=== PATIENT | male | born 1990 | race Two or more races ===

== ENCOUNTER 2017-01-19 15:13 | Inpatient (IN) | payer OTHER ==
[~2017-01-19] VITALS: Ht 167.6 cm; Wt 44.2 kg
--- NOTE | ~2017-01-19 | CR72 ---
[facility] A Service of [facility] & [facility] RADIOLOGY TEXT RESULTS PATIENT: SOLEDAD CHAND LOCATION: [facility] 320-01 : [birth year] UNIT #: [id number] AGE: [address]: Amina Fields MD SEX: M ORDER DR: [id number] [facility] [address] [facility]. [place], [place] [address] [id number] I MR#: [id number] Acc #: [id number] NAME: SOLEDAD CHAND : 1990 SEX: M STUDY DATE/TIME: 01/19/2017 16:29 UNIT: [address] ROOM: [facility] STUDY DESCRIPTION: CR Chest Single View Portable Attending Physician: Amina Fields M.D. Referring Physician: No Primary Care Physician Ordering Physician: Qamar Louie D.O. Primary Care Physician: No Primary Care Physician MEDICAL IMAGING REPORT This report is preliminary unless electronic signature is present EXAM Portable chest HISTORY Palpitations for 3 days. FINDINGS A single AP portable view of the chest shows both lungs to be clear. The heart is normal in size. The mediastinal contour is normal. No significant bone abnormalities are seen. IMPRESSION Normal portable chest. Dictated by... Александр Mcgovern M.D. THIS IS AN ELECTRONICALLY VERIFIED REPORT Александр Mcgovern M.D. at 01/20/2017 1:03 PM LOREE/andi TD: 01/20/2017 00:09 JOB #: [id number] MEDICAL IMAGING REPORT Page 1 of 1 COPY
--- NOTE | ~2017-01-19 | OR ---
Unit #: [id number] #: [id number] Patient: SOLEDAD CHAND [id number] [address] [address] [id number] I MR#: [id number] NAME: SOLEDAD CHAND ROOM: 320 Date of Procedure: 01/20/2017 Admission Date: 01/19/2017 Surgeon: Steven Nugent M.D. : 1990 Attending Physician: Afshin Norton M.D. Referring Physician: Primary Care Physician No Primary Care Physician: Primary Care Physician No OPERATIVE REPORT PROCEDURE PERFORMED Esophagogastroduodenoscopy with biopsy. INDICATIONS GI bleeding and severe anemia. MEDICATIONS Versed 7 mg and fentanyl 75 mcg IV. POSTOPERATIVE FINDINGS 1. A 1 cm ulcer clean-based duodenal bulb. No active bleeding or stigmata of recent bleeding was seen. 2. Normal stomach, biopsies taken, looking for H pylori. 3. Normal duodenum and distal duodenum. PLAN 1. PPI therapy. 2. Treat for H pylori if positive. 3. Transfusion and supportive care. DESCRIPTION OF PROCEDURE The patient was explained of the procedure risks and benefits along with risks and benefits of anesthesia. He was brought to the endoscopy room. Versed and fentanyl were used for conscious sedation. The scope was then passed down the mouth and esophagus, stomach, duodenum, and distal duodenum findings as described. Biopsies were taken in the stomach. Gently, I pulled it out of the patient's mouth. He tolerated it well. Dictated by... Luis Fernando Sparks/nette TD: 01/20/2017 10:36 JOB #: [id number] CC: Primary Care Physician Unit #: [id number] #: [id number] Patient: SOLEDAD HCAND OPERATIVE REPORT Page 1 of 1 X Steven Nugent MD X PROCEDURE OPERATIVE NOTE
--- NOTE | ~2017-01-19 | EKG ---
PATIENT: SOLEDAD CHAND UNIT #: [id number] Ventricular Rate: 109 BPM Atrial Rate: 109 BPM P-R Interval: 156 ms QRS Duration: 84 ms Q-T Interval: 336 ms QTC Calculation(Bezet): 452 ms P Brandon: 75 degrees Calculated R Brandon: 71 degrees Calculated T Brandon: 52 degrees Diagnosis Line: Sinus tachycardia Diagnosis Line: Otherwise normal ECG Diagnosis Line: No previous ECGs available Diagnosis Line: Confirmed by MANUELA SANTO MD ([id number]) on Diagnosis Line: 01/20/2017 11:15:30 PM INTERPRETING MD: HANSA DIEGO
--- NOTE | ~2017-01-19 | HP ---
Unit #: [id number] #: [id number] Patient: SOLEDAD CHAND [id number] [facility] [address] [facility]. [place], [place] [address] [id number] I MR#: [id number] NAME: SOLEDAD CHAND ROOM: 320 Age: 26 Sex: M Admission Date: 01/19/2017 : 1990 Attending Physician: Amina Fields M.D. Primary Care Physician: No Primary Care Physician HISTORY AND PHYSICAL CHIEF COMPLAINT Palpitations. HISTORY OF PRESENT ILLNESS The patient is a 26-year-old Filipino male with no significant past medical history who presented to the emergency department for evaluation of the above. History is obtained via [employer] #[id number] due to the patient being Filipino speaking only. The patient states that he has had a 3-day history of intermittent palpitations. He denies any chest pain. He has had chills but no documented fever. He reports decreased appetite. He denies any vomiting. He has noticed that his stool has been getting darker for the past couple days. He denies any urinary symptoms. He denies any change in his weight. He has never had endoscopy. In the emergency department initial pulse and blood pressure were 130 and 145/80 respectively. He was given 500 mL of normal saline, as well as 80 mg of Protonix. Rectal exam was heme positive per ER documentation. Hemoglobin is 8.1. He is being admitted to [facility] for evaluation and further treatment. PAST MEDICAL HISTORY The patient denies hospitalizations. PAST SURGICAL HISTORY None. SOCIAL HISTORY The patient lives with family. He moved to the [place] 6 months ago. He denies tobacco or alcohol use. FAMILY HISTORY Notable for his parents being healthy. ALLERGIES No known allergies. HOME MEDICATIONS None. REVIEW OF SYSTEMS A complete review of systems is negative except as indicated in the HPI. Unit #: [id number] #: [id number] Patient: SOLEDAD CHAND PHYSICAL EXAMINATION VITAL SIGNS: Temperature is 98, pulse 130, respirations 16, blood pressure 144/80, oxygen saturation 100% on room air. GENERAL: The patient is awake and alert, in no acute distress. HEENT: The head is atraumatic. Mucous membranes are moist. NECK: Supple. Trachea is midline. CARDIOVASCULAR: Tachycardic in the 120s. He does have a 3/6 systolic ejection murmur. RESPIRATORY: Lungs are clear to auscultation bilaterally with no increased work of breathing. ABDOMEN: Soft, nontender with bowel sounds present in all 4 quadrants. RECTAL EXAM: Rectal exam was heme positive per ER documentation. EXTREMITIES: Extremities are nontender with no pedal edema. NEUROLOGIC: The patient is awake and alert. He follows commands. PSYCHIATRIC: Mood and affect are normal. The patient is cooperative. SKIN: Skin of examined areas is warm and dry. DIAGNOSTIC TESTS CARDIOVASCULAR: EKG shows sinus tachycardia with rate of 109 beats per minute. LABORATORY: Complete blood count notable for hemoglobin and hematocrit of 8.1 and 23.7 respectively. Troponin is less than 0.05. INR is 1. Comprehensive metabolic panel notable for glucose of 125, calcium 8.3, total protein 5.8, magnesium 1.9. TSH is 1.65. ASSESSMENT 1. The patient is a 26-year-old male with GI bleed. The patient received 80 mg of Protonix in the emergency department. 2. Normocytic anemia. The patient's hemoglobin is 8.1 with no baseline for comparison. 3. Murmur, possibly secondary to anemia. The patient denies any type of heart history. PLAN 1. Admit for observation to intermediate level. 2. NPO for possible endoscopy. 3. Normal saline at 125 mL an hour following 1 liter normal saline bolus. 4. Hemoglobin and hematocrit q.6 hours. Will plan transfusion for hemoglobin less than 7. 5. Iron studies, B12 and folate. 6. Protonix drip at 8 mg per hour. 7. Consult Dr. Nugent regarding GI bleed. 8. Repeat labs in the morning. 9. SCDs for DVT prophylaxis. 10. Additional workup and consultants based on above. Dictated by Luis Fernando Davey/stephanie TD: 01/20/2017 07:40 JOB #: [id number] Unit #: [id number] #: [id number] Patient: SOLEDAD CHAND HISTORY AND PHYSICAL Page 1 of 1 X Amina Fields MD HISTORY AND PHYSICAL
--- NOTE | ~2017-01-19 | DS ---
Unit #: [id number] #: [id number] Patient: SOLEDAD CHAND [id number] [address] [address] [id number] I MR#: [id number] NAME: SOLEDAD CHAND ROOM: 320 Age: 26 Sex: M Admission Date: 01/19/2017 : 1990 Discharge Date: 01/21/2017 Attending Physician: Afshin Norton M.D. Referring Physician: Primary Care Physician No Primary Care Physician: Primary Care Physician No DISCHARGE SUMMARY DISCHARGE DIAGNOSIS Symptomatic acute blood loss anemia. HOSPITAL COURSE The patient is a 26-year-old male presented to [facility] emergency department with the complaint of palpitations. Initial hemoglobin was noted to be 8.1. Dropped to 6.2 and the patient received four units of packed red blood cells. He was taken for EGD and was noted to have a duodenal ulcer that was not actively bleeding. The patient tolerated the procedure well and after having been started on an IV proton pump inhibitor is being discharged on Protonix 40 mg p.o. b.i.d. He denies further bleeding, nausea, or vomiting. DISCHARGE MEDICATIONS Protonix 40 mg p.o. b.i.d. FOLLOWUP The patient is to follow up with Dr. Nugent in two weeks. Dictated by... Luis Fernando Green/danielle TD: 01/23/2017 10:49 JOB #: [id number] DISCHARGE SUMMARY Page 1 of 1 X Afshin Norton MD X DISCHARGE SUMMARY
--- NOTE | ~2017-01-19 | CO ---
Unit #: [id number] #: [id number] Patient: SOLEDAD RODRIGUEZ [id number] [address] [place], [place] [address] [id number] I MR#: [id number] NAME: SOLEDAD RODRIGUEZ ROOM: 320 Age: 26 Sex: M Admission Date: 01/19/2017 : 1990 Attending Physician: Amina Fields M.D. Primary Care Physician: Primary Care Physician No Consultation Date: 01/20/2017 CONSULTATION REPORT REASON FOR CONSULTATION GI bleeding. HISTORY OF PRESENTING ILLNESS Mr. Rodriguez is a [place] Citizen speaking immigrated 6 months ago, now presents with blood in the stool, and was found to be severely anemic. He initially presented with palpitations. His hemoglobin on arrival was 8.1. He denies any history of GI bleeding or in the evaluation in the past. He denies NSAID use. PAST MEDICAL HISTORY Unremarkable. PAST SURGICAL HISTORY No previous surgeries. SOCIAL HISTORY Denies alcohol, drugs, or smoking. FAMILY HISTORY Noncontributory. ALLERGIES None. HOME MEDICATIONS None. REVIEW OF SYSTEMS A complete 10 point review of systems was done, which has been detailed in HPI. Rest was negative. PHYSICAL EXAMINATION VITAL SIGNS: Stable. Tachycardic. HEENT: Pupils are equal and reactive. Sclerae anicteric. Oral mucosa moist. NECK: No JVD. No lymphadenopathy. CHEST: Clear to auscultation bilaterally. CARDIOVASCULAR: Regular rate and rhythm. No murmurs. ABDOMEN: Soft, nontender, and nondistended. EXTREMITIES: Without clubbing, cyanosis, or edema. He was heme-positive in emergency room. NEUROLOGIC: Negative. Good mood and affect. Unit #: [id number] #: [id number] Patient: SOLEDAD RODRIGUEZ DIAGNOSTIC STUDIES LABORATORY RESULTS: Hemoglobin arrival at 8.1, this morning is The patient so far has been refusing blood transfusion; however, agrees to me on my interview for the same. Potassium at 3.4, low iron at 26, transferrin saturation is 13%. B12 and folate were normal. ASSESSMENT AND PLAN The patient seems to be having acute on chronic gastrointestinal blood loss leading to severe anemia. At this time, he is symptomatic with tachycardia, weakness, and palpitations. We will give him blood transfusion, now that he agreed to it. Also, we will plan on a doing an upper endoscopy for evaluation and possible intervention. He has already been started on PPI infusion, which we will continue for now. Continue with symptomatic treatment otherwise. Thank you, Dr. Fields for this interesting consult. We will follow along. Dictated by... Luis Fernando Sparks/nette TD: 01/20/2017 11:26 JOB #: [id number] CONSULTATION REPORT Page 1 of 1 X Steven Nugent MD X CONSULTATION REPORT
[2017-01-19 16:31] LABS: BASOPHIL% 0.4 % (0-2.5); DIFF IND NO; EOSINOPHIL# 0.1 X10e3 (0-0.7); EOSINOPHIL% 1.4 % (0.0-7.0); HEMATOCRIT 23.7 % (38.0-50.0); HEMOGLOBIN 8.1 gm/dL (13.0-16.0); LYMPHOCYTE# 2.2 X10e3 (1.0-3.5); LYMPHOCYTE% 24.5 % (17.0-45.0); MEAN CELL VOLUME 93.2 FL (83-96); MEAN CORPUSCULAR HGB CONC 34.4 g/dL (30-36); MEAN PLATELET VOLUME 9.2 FL (6.5-11.5); MONOCYTE# 0.6 X10e3 (0-1.0); MONOCYTE% 6.6 % (3.0-12.0); NEUTROPHIL% 67.1 % (40-75); PLATELET COUNT 179 X10e3 (140-420); RED BLOOD COUNT 2.54 X10e (3.90-5.60); RED CELL DISTRIBUTION WIDTH 13.1 % (11.0-15.5); WHITE BLOOD COUNT 8.9 X10e3 (4.0-10.5)
[2017-01-19 16:37] LABS: POC - CKMB <1.0 ng/mL (0.0-7.9); POC - TROPONIN <0.05 ng/mL (<=0.05)
[2017-01-19 16:45] LABS: PARTIAL THROMBOPLASTIN TIME 21.2 SECONDS (23.5-31.3); PROTHROMBIN TIME (PATIENT) 10.8 SECONDS (10.0-11.7)
[2017-01-19 16:52] LABS: ALBUMIN SERUM 3.6 g/dL (3.5-5.0); ALKALINE PHOSPHATASE 48 U/L (32-92); ALT (SGPT) 20 U/L (10-40); AST (SGOT) 18 U/L (10-42); BILIRUBIN,TOTAL 0.5 mg/dL (0.2-2.0); BLOOD UREA NITROGEN 13 mg/dL (9-23); BUN/CREATININE RATIO 16.25; CALCIUM SERUM 8.3 mg/dL (8.4-10.2); CARBON DIOXIDE 29 mmol/L (22-31); CHLORIDE 105 mmol/L (100-111); CREATININE SERUM 0.8 mg/dL (0.6-1.4); GLOM FILT RATE Estimated 123.3 mL/min (>60); GLUCOSE FASTING 125 mg/dL (70-110); MAGNESIUM 1.9 mg/dL (1.6-3.0); POTASSIUM 3.6 mmol/L (3.5-5.1); PROTEIN TOTAL SERUM 5.8 g/dL (6.0-8.3); SODIUM 137 mmol/L (135-145)
[2017-01-19 16:58] LABS: BILIRUBIN, DIRECT <0.1 mg/dL (0.0-0.2); BILIRUBIN,INDIRECT 0.4 mg/dL (0.0-0.9)
[2017-01-19 17:38] LABS: POC - CKMB <1.0 ng/mL (0.0-7.9); POC - TROPONIN <0.05 ng/mL (<=0.05)
[2017-01-19 20:16] LABS: URINE SOURCE CLEAN CATCH
[2017-01-19 20:21] LABS: URINE APPEARANCE CLOUDY; URINE BILIRUBIN NEG (NEG); URINE BLOOD NEG (NEG); URINE COLOR YELLOW; URINE GLUCOSE NEG (NEG); URINE KETONE NEG (NEG); URINE LEUKOCYTE ESTERASE TRACE (NEG); URINE NITRATE NEG (NEG); URINE PROTEIN NEG (NEG); URINE SPECIFIC GRAVITY 1.018 (1.003-1.035); URINE UROBILINOGEN 0.2 MG/DL (NEG)
[2017-01-19 20:26] LABS: URBCS1 AUWI 0-2 /[HPF] (0-2); URINE BACTERIA AUWI NEG (NEGATIVE); URINE SQUAMOUS EPITHELIAL CELL NONE SEEN /[HPF]
[2017-01-19 20:27] LABS: CULTURE INDICATED? NO
[2017-01-19 23:47] LABS: HEMATOCRIT 20.4 % (38.0-50.0); MEAN CELL VOLUME 93.9 FL (83-96); MEAN CORPUSCULAR HEMOGLOBIN 31.9 PG (28-34); RED BLOOD COUNT 2.18 X10e (3.90-5.60)
[2017-01-20 04:38] LABS: HEMATOCRIT 18.6 % (38.0-50.0); MEAN CELL VOLUME 94.6 FL (83-96); MEAN CORPUSCULAR HEMOGLOBIN 31.7 PG (28-34); MEAN CORPUSCULAR HGB CONC 33.4 g/dL (30-36); MEAN PLATELET VOLUME 8.8 FL (6.5-11.5); RED BLOOD COUNT 1.97 X10e (3.90-5.60); RED CELL DISTRIBUTION WIDTH 13.3 % (11.0-15.5); WHITE BLOOD COUNT 7.4 X10e3 (4.0-10.5)
[2017-01-20 04:40] LABS: HEMOGLOBIN 6.2 gm/dL (13.0-16.0)
[2017-01-20 05:04] LABS: ALBUMIN SERUM 2.9 g/dL (3.5-5.0); BILIRUBIN,TOTAL 0.7 mg/dL (0.2-2.0); BUN/CREATININE RATIO 12.85; CALCIUM SERUM 7.6 mg/dL (8.4-10.2); CREATININE SERUM 0.7 mg/dL (0.6-1.4); GLOM FILT RATE Estimated 130.3 mL/min (>60); POTASSIUM 3.4 mmol/L (3.5-5.1); PROTEIN TOTAL SERUM 4.5 g/dL (6.0-8.3)
[2017-01-20 05:59] LABS: FOLATE (FOLIC ACID) 6.2 ng/mL (>5.8)
[2017-01-20 22:53] LABS: HEMATOCRIT 32.1 % (38.0-50.0); MEAN CELL VOLUME 94.5 FL (83-96); MEAN CORPUSCULAR HEMOGLOBIN 31.4 PG (28-34); MEAN CORPUSCULAR HGB CONC 33.2 g/dL (30-36); MEAN PLATELET VOLUME 9.3 FL (6.5-11.5); RED BLOOD COUNT 3.4 X10e (3.90-5.60); RED CELL DISTRIBUTION WIDTH 13.7 % (11.0-15.5); WHITE BLOOD COUNT 9.6 X10e3 (4.0-10.5)
[2017-01-20 22:58] LABS: HEMOGLOBIN 10.7 gm/dL (13.0-16.0)
[2017-01-21 06:01] LABS: HEMATOCRIT 27.9 % (38.0-50.0); HEMOGLOBIN 9.5 gm/dL (13.0-16.0); MEAN CELL VOLUME 92.3 FL (83-96); MEAN CORPUSCULAR HEMOGLOBIN 31.3 PG (28-34); MEAN CORPUSCULAR HGB CONC 33.9 g/dL (30-36); MEAN PLATELET VOLUME 8.6 FL (6.5-11.5); RED BLOOD COUNT 3.02 X10e (3.90-5.60); RED CELL DISTRIBUTION WIDTH 13.3 % (11.0-15.5); WHITE BLOOD COUNT 7.7 X10e3 (4.0-10.5)
[2017-01-21 06:48] LABS: CALCIUM SERUM 8.2 mg/dL (8.4-10.2); CARBON DIOXIDE 27 mmol/L (22-31); CHLORIDE 107 mmol/L (100-111); CREATININE SERUM 0.7 mg/dL (0.6-1.4); GLOM FILT RATE Estimated 130.3 mL/min (>60); GLUCOSE FASTING 93 mg/dL (70-110); POTASSIUM 3.6 mmol/L (3.5-5.1); SODIUM 136 mmol/L (135-145)
[2017-01-21 06:51] LABS: BLOOD UREA NITROGEN <5 mg/dL (9-23); BUN/CREATININE RATIO 7.14
[2017-01-21 10:28] LABS: HEMATOCRIT 28.2 % (38.0-50.0); HEMOGLOBIN 9.6 gm/dL (13.0-16.0)
[2017-01-21] MEDS ORDERED: PROTONIX PO (15:55)
[2017-01-21] MEDS ORDERED: IRON SULFATE PO (15:58)
[2017-01-21 16:10] LABS: HEMATOCRIT 28.5 % (38.0-50.0)
== END 2017-01-21 18:18 | disposition home or self-care (01) | DRG 812 ==
LOC: CED 15:13 → C3A PCU 18:35 → CED 18:35 → CEDOF 18:35 → CED 18:52 → C3A PCU 20:52 → CEDOF 20:52 → C3A PCU 20:52
PROVIDERS: Emergency Medicine; Family Medicine; Internal Medicine
PROC: 30233N1 Transfusion of Nonautologous Red Blood Cells into Peripheral Vein, Percutaneous Approach (ICD-10-PCS; 2017-01-19)
PROC: 0DB68ZX Excision of Stomach, Via Natural or Artificial Opening Endoscopic, Diagnostic (ICD-10-PCS; principal; 2017-01-20 10:04)
DX: D62 Acute posthemorrhagic anemia (principal); K26.9 Duodenal ulcer, unspecified as acute or chronic, without hemorrhage or perforation; R00.2 Palpitations; B96.81 Helicobacter pylori [H. pylori] as the cause of diseases classified elsewhere; K29.50 Unspecified chronic gastritis without bleeding
CPT/HCPCS: 36415; 71010; 80048; 80053; 80076; 81003; 82553; 82607; 82746; 83540; 83550; 83735; 84443; 84484; 85014; 85018; 85025; 85027; 85610; 85730; 86850; 86900; 86901; 86923; 88305; 88312; 88313; 88323; 88341; 88342; 88368; 88369; 93005; 99285; C9113; J2250; J2405; J3010; P9016